=== PATIENT | male | born 1955 | race Caucasian/White ===

== ENCOUNTER 2023-03-21 10:27 | Day surgery (SDC) | payer MEDICARE, OTHER, SELFPAY ==
--- NOTE | 2023-03-21 | PATH_ITS ---
[facility] Accession Number: [id number] No. of containers..01 Tissue . 01 Material submitted: . esophagus, E-G Junction - GE JUNCTION . 01 Diagnosis: GE JUNCTION, BIOPSY: - COLUMNAR EPITHELIUM WITH INTESTINAL METAPLASIA, (SEE COMMENT). - MINUTE FRAGMENTS OF SQUAMOUS EPITHELIUM, NO INCREASED INTRAEPITHELIAL EOSINOPHILS. - NEGATIVE FOR DYSPLASIA AND NEGATIVE FOR MALIGNANCY. 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 TXN 03/23/2023 1049 Local . 01 Electronically signed: . Nathaniel Neely MD, Pathologist NPI- [id number] . 01 Gross description: . GE JUNCTION: Received in formalin is 1 fragment(s) of bowman, soft tissue measuring 0.6 x 0.2 x 0.1 cm submitted entirely in 1 cassette(s) /AAY 03/22/2023 0614 Local . 01 Pathologist provided ICD-10: R63.4, R19.4, K21.9 . 01 CPT . 425964 Specimen Comment: A courtesy copy of this report has been sent to [phone] Performed at: 01 [facility] [address] [place] [address], [place], [place] [id number] MD Timi Desouza MD Phone: [phone]
[2023-03-21] MEDS: LACTATED RINGERS 1,000 ML 42 ML IV (10:40)
[2023-03-21 10:49] VITALS: BP 153/89; PULSE 78; RESP 18; TEMP 36.8; O2SAT 98; BMI 22.4
--- NOTE | 2023-03-21 11:39 | PM.OP.EGD ---
Operative Date/Time/Diagnoses Date of procedure: 03/21/23 Pre-op diagnosis: See indication and findings Procedure & Clinicians Study performed: EGD Indications: History of pneumonia rule out GE reflux rule out Lopez's esophagus Surgeon: Trev Bahena Procedure Notes Procedure in detail: After informed consent was obtained the patient was placed left lateral decubitus position. The video upper scope was placed into the oropharynx with the patient's help swallowed into the esophagus. The esophagus stomach and duodenum were carefully examined. On withdrawal, retroflexed view the GE junction was performed. Scope was removed. The patient tolerated procedure well. Blood loss none Complications none Sedation mac Findings 1. Grade C esophagitis. Most lesions were punctate but 1 ulceration was at least a cm long. This was at the squamocolumnar junction proceeding proximally. 2. One tongue of pink tissue extending over a cm above at the Z-line. Biopsies taken to rule out Lopez's esophagus 3. Normal stomach 4. Normal duodenal bulb and sweep Would have the patient start himself on Nexium OTC taking 40 mg daily for 8 weeks after which time we should recheck EGD to document complete healing.
--- NOTE | 2023-03-21 11:58 | PM.HP.1 ---
History of Present Illness History of Present Illness Date Patient Seen: 03/21/23 Chief complaint: EGD Narrative: GE reflux with possible history of esophageal ulcer PFSH Social History household members: spouse Smoking Status: Former smoker alcohol intake: never Meds Home Medications and Allergies Home Medications Medication Instructions Recorded Confirmed Type fexofenadine 30 mg tablet 30 mg PO DAILY 03/21/23 03/21/23 History fluticasone propionate 50 1 spray intranasal DAILY 03/21/23 03/21/23 History mcg/actuation nasal spray,suspension hydrochlorothiazide 25 mg tablet 25 mg PO DAILY 03/21/23 03/21/23 History Allergies Allergy/AdvReac Type Severity Reaction Status Date / Time No Known Drug Allergies Allergy Verified 03/21/23 10:47 Exam Vital Signs (past 8 hours): - 03/21/23 10:49 Temperature 98.2 F Pulse Rate 78 Respiratory Rate 18 Blood Pressure 153/89 H Pulse Oximetry 98 Oxygen Delivery Method Room Air Oxygen Delivery Method Room Air Narrative Exam Narrative: Oropharynx free of lesions Chest clear to auscultation percussion Cardiac exam reveals no S3 or murmur Assessment & Plan Assessment & Plan narrative: GE reflux with history of possible esophageal ulceration. Need to check for complete healing or persistent inflammation. Risks, benefits, alternatives have been explained.
[2023-03-21 12:20] VITALS: BP 120/75; PULSE 82; RESP 18; TEMP 36.4; O2SAT 96
[2023-03-21 12:25] VITALS: BP 121/77; PULSE 84; RESP 10; TEMP 36.4; O2SAT 95
[2023-03-21 12:31] VITALS: BP 134/78; PULSE 80; RESP 14; O2SAT 96
[2023-03-21 12:35] VITALS: BP 119/65; PULSE 77; RESP 18; TEMP 36.4; O2SAT 97
== END 2023-03-21 12:50 | disposition home or self-care (01) ==
PROVIDERS: PCP Internal Medicine; Referring Provider Internal Medicine; Visit Provider Internal Medicine Gastroenterology
PROC: 0DJ08ZZ Inspection of Upper Intestinal Tract, Via Natural or Artificial Opening Endoscopic (ICD-10-PCS; CPT 43235; principal; 2023-03-21 11:30)
DX: K21.00 Gastro-esophageal reflux disease with esophagitis, without bleeding (principal); K22.70 Barrett's esophagus without dysplasia
CPT/HCPCS: 43239; 93005; J2704

== ENCOUNTER 2023-06-20 13:21 | Day surgery (SDC) | payer MEDICARE, OTHER, SELFPAY ==
[2023-06-20 13:34] VITALS: BMI 22.7
[2023-06-20 13:39] VITALS: BP 139/86; PULSE 75; RESP 20; TEMP 36.3; O2SAT 100
--- NOTE | 2023-06-20 13:51 | PM.HP.1 ---
History of Present Illness History of Present Illness Date Patient Seen: 06/20/23 Chief complaint: EGD Narrative: History of severe ulcerative esophagitis need to check for complete healing on medications PFSH Social History household members: spouse Smoking Status: Former smoker alcohol intake: never Meds Home Medications and Allergies Home Medications Medication Instructions Recorded Confirmed Type fexofenadine 30 mg tablet 30 mg PO DAILY 03/21/23 06/20/23 History fluticasone propionate 50 1 spray intranasal DAILY 03/21/23 06/20/23 History mcg/actuation nasal spray,suspension hydrochlorothiazide 25 mg tablet 25 mg PO DAILY 03/21/23 06/20/23 History esomeprazole magnesium 40 mg 40 mg PO DAILY 06/20/23 06/20/23 History capsule,delayed release (Nexium) Allergies Allergy/AdvReac Type Severity Reaction Status Date / Time No Known Drug Allergies Allergy Verified 06/20/23 13:32 Exam Narrative Exam Narrative: Oropharynx free of lesions Chest clear to auscultation percussion Cardiac exam reveals no S3 or murmur Assessment & Plan Assessment & Plan narrative: History of severe esophagitis need to check for complete healing. Risks, benefits, alternatives have been explained
--- NOTE | 2023-06-20 13:52 | PM.OP.EGD ---
Operative Date/Time/Diagnoses Date of procedure: 06/20/23 Pre-op diagnosis: See indication and findings Procedure & Clinicians Study performed: EGD Indications: History of severe esophagitis Surgeon: Trev Bahena Procedure Notes Procedure in detail: After informed consent was obtained patient was placed in left lateral decubitus position. The video upper scope was placed into the oropharynx and with the patient's help swelled into the esophagus. The esophagus stomach and duodenum were carefully examined. On withdrawal retroflexed view the GE junction was performed. The scope was removed. The patient tolerated procedure well. Blood loss none Complications none Sedation mac Findings 1. Completely healed esophagitis 2. Normal stomach 3. Normal duodenum Patient can stop his Nexium and merely see how he does. He should call and a moment's notice should he begin have heartburn again. I told him he has a high likelihood of recurrence though he has gone on a low acid diet and expects this will keep him under control.
[2023-06-20] MEDS: LACTATED RINGERS 1,000 ML 42 ML IV (13:59)
[2023-06-20 14:27] VITALS: BP 118/76; BP 130/82; PULSE 80; RESP 18; RESP 22; TEMP 36.2; O2SAT 95; O2SAT 97
[2023-06-20 14:33] VITALS: BP 130/86; PULSE 81; RESP 18; O2SAT 99
== END 2023-06-20 15:00 | disposition home or self-care (01) ==
PROVIDERS: PCP Internal Medicine; Referring Provider Internal Medicine Gastroenterology; Visit Provider Internal Medicine Gastroenterology
PROC: 0DJ08ZZ Inspection of Upper Intestinal Tract, Via Natural or Artificial Opening Endoscopic (ICD-10-PCS; CPT 43235; principal; 2023-06-20 14:30)
DX: Z87.19 Personal history of other diseases of the digestive system (principal)
CPT/HCPCS: 43235; J2704